=== PATIENT | male | born 1970 | race Caucasian/White ===

== ENCOUNTER 2016-10-10 17:51 | Emergency (ER) | payer SELFPAY ==
--- NOTE | 2016-10-10 19:43 | ED ---
I, Ned Desir, scribed for Anupama Bond MD on 10/10/16 at 1913 . Substance Abuse/Use - HPI Summary HPI Summary: A 46 y/o M FRANCESCA presents to ED with substance overdose HOT BRAIDER. Pt relapsed with IV opiate after not using for "a long time." Pt states he has been buying street suboxone. Pt states he tried to cut back and started going through withdrawal - last suboxone on 10/08. Pt states a friend sold him what he thought was heroin, but he is concerned it had Fentanyl. Pt states his friend assisted injection. Pt states that is the last thing he remembers until the ambulance. Per report, pt received CPR by cousin prior to EMS. Pt was given Narcan enroute. Upon arrival, pt without complaints other than pain over sternum and feeling "ashamed." Pt states has never gone through a detox program. Pt states he doesn't want to go "someplace" but states thinks need help and would consider prescribed suboxone. Pt does not have a PCP or insurance. Pt's so states she is considering adding him to her insurance, but states "I need guarantees he is going to stayy clean because I have children." Pt without other complaints -no n/v, hewitt, sob, abd pain. SHx: back surgery. Smoker, 1ppd. Occasional EhTOH. Patient's medication reviewed this visit. - History Of Current Complaint Chief Complaint: EDOverdose Stated Complaint: OVERDOSE Time Seen by Provider: 10/10/16 19:04 Hx Obtained From: Patient, Family/Senior Functional Analyst - girlfriend Onset/Duration of Drug/ETOH Abuse: Hours Ingestion History: Type/Name Of Drug - fentanyl Overdose Characteristics: IV Severity Initially: Severe Severity Currently: Mild Character: Other - tearful Aggravating Factor(s): Other - ilicit substance use Alleviating Factor(s): Nothing Associated Signs And Symptoms: Negative, Chest Pain - mild due to CPR - sternum - Allergies/Home Medications Allergies/Adverse Reactions: Allergies Allergy/AdvReac Type Severity Reaction Status Date / Time No Known Allergies Allergy Verified 06/30/13 21:34 PMH/Surg Hx/FS Hx/Imm Hx Previously Healthy: No Endocrine/Hematology History: Denies: Hx Diabetes, Hx Thyroid Disease Cardiovascular History: Denies: Hx Hypertension Respiratory History: Denies: Hx Asthma, Hx Chronic Obstructive Pulmonary Disease (COPD) GI History: Denies: Hx Ulcer Psychiatric History: Reports: Hx Substance Abuse - Surgical History Surgery Procedure, Year, and Place: back, lumbar Infectious Disease History: No Infectious Disease History: Denies: Hx Clostridium Difficile, Hx Hepatitis, Hx Human Immunodeficiency Virus (HIV), Hx of Known/Suspected MRSA, Hx Shingles, Hx Tuberculosis, Hx Known/ Suspected VRE, Hx Known/Suspected VRSA, History Other Infectious Disease, Traveled Outside the [place] in Last 30 Days - Social History Occupation: Unemployed - OTHER Lives: With Family Alcohol Use: Rare Hx Substance Use: Yes Substance Use Type: Reports: Other Substance Use Comment - Amount & Last Used: Suboxone (nonprescription x1 year), today, heroin IV Hx Tobacco Use: Yes Smoking Status (MU): Heavy Every Day Tobacco Smoker Type: Cigarettes Amount Used/How Often: 1 PPD Length of Time of Smoking/Using Tobacco: 15+ years Have You Smoked in the Last Year: Yes Review of Systems Constitutional: Other - pos: overdose Negative: Fever Eyes: Negative ENT: Negative Positive: Chest Pain - mild sternum Respiratory: Negative Negative: Shortness Of Breath Negative: Vomiting, Nausea Genitourinary: Negative Musculoskeletal: Negative Skin: Negative Neurological: Negative Psychological: Other - pos: teary All Other Systems Reviewed And Are Negative: Yes Physical Exam Triage Information Reviewed: Yes Vital Signs On Initial Exam: Initial Vitals Temp Pulse Resp BP Pulse Ox 98.7 F 94 17 179/73 98 10/10/16 18:07 10/10/16 18:07 10/10/16 18:07 10/10/16 18:07 10/10/16 18:07 Vital Signs Reviewed: Yes Appearance: Positive: Well-Appearing, No Pain Distress - intermittently tearful , SO at bedside, Well-Nourished Skin: Positive: Warm, Skin Color Reflects Adequate Perfusion, Dry, Other - No ecchymosis, no open wounds Head/Face: Positive: Normal Head/Face Inspection Eyes: Positive: Normal ENT: Positive: Normal ENT inspection, Hearing grossly normal, Pharynx normal, TMs normal Neck: Positive: Supple, Nontender, No Lymphadenopathy Respiratory/Lung Sounds: Positive: Clear to Auscultation, Breath Sounds Present , Other - no splinting No accessory muscle use. Negative: Decreased Breath Sounds Cardiovascular: Positive: Normal, RRR, Other - No crepitus Mild TTP sternum Abdomen Description: Positive: Nontender, No Organomegaly, Soft Bowel Sounds: Positive: Present Musculoskeletal: Positive: Normal, Strength/ROM Intact Neurological: Positive: Normal, Sensory/Motor Intact, Alert, Oriented to Person Place, Time Psychiatric: Positive: Affect/Mood Appropriate - intermittently tearful AVPU Assessment: Alert - [place] Coma Scale Best Eye Response: 4 - Spontaneous Best Motor Response: 6 - Obeys Commands Best Verbal Response: 5 - Oriented Coma Scale Total: 15 Diagnostics - Vital Signs Vital Signs Temp Pulse Resp BP Pulse Ox 10/10/16 18:20 88 14 98 10/10/16 18:07 98.7 F 94 17 179/73 98 - Laboratory Lab Statement: Any lab studies that have been ordered have been reviewed, and results considered in the medical decision making process. - Radiology CXR Xray Interpretation: No Acute Changes - IMPRESSION: No evidence for active cardiopulmonary dz. Radiology Interpretation Completed By: Radiologist - EKG 1 EKG Rhythm: Sinus Rhythm - 77bpm ST Segment: Normal - no acute ST wave changes Re-Evaluation - Re-Evaluation 1 Re-Evaluation Time: 20:04 Change: Improved Comment: Disccusing XR results with pt Pt states feeling better. Has substance abuse treatment information, SW consult requested for tomorrow, physician referral number given. Pt comfortable and in agreement with plan. tolerating po Course/Dx - Course Course Of Treatment: Provided pt with information of local substance abuse treatment centers, as well as [facility] physician referral services. - Diagnoses Provider Diagnoses: Opiate abuse, episodic, Chest wall pain Discharge - Discharge Plan Condition: Stable Disposition: HOME Patient Education Materials: Narcotic Abuse (ED), Adult Overdose (ED), Opioid Overdose (ED) Referrals: No Primary Care Phys,NOPCP [Primary Care Provider] - [facility] PHYSICIAN REFERRAL [Outside] Additional Instructions: - You have been given a list of resources to call for assistance with your opiate addiction - A referral has been placed for social work to contact your - they should call you to discuss options for insurance with you - You have also been given the physician referral center number - they may be able to assist you with options related to your addiction as well as primary medicine The documentation as recorded by the [facility] main SooYoung accurately reflects the service I personally performed and the decisions made by me, Varun,Anupama, MD.
--- NOTE | 2016-10-10 19:58 | RAD ---
INDICATION: Status post CPR evaluate for pneumothorax. COMPARISON: There are no prior studies available for comparison. TECHNIQUE: Dual-energy PA and lateral views of the chest were obtained. FINDINGS: The heart is within normal limits in size. Mediastinal and hilar contours appear within normal limits. The lungs are clear. No pleural effusion or pneumothorax is seen. IMPRESSION: NO EVIDENCE FOR ACTIVE CARDIOPULMONARY DISEASE.
[2016-10-10] MEDS ORDERED: Ondansetron ODT TAB* 4 MG PO PRN (20:22)
[2016-10-10 20:49] VITALS: BP 111/60
== END 2016-10-10 20:30 | disposition home or self-care (01) ==
LOC: ED 17:51
DX: F11.10 Opioid abuse, uncomplicated (principal); R07.89 Other chest pain; Z11.4 Encounter for screening for human immunodeficiency virus [HIV]; F17.210 Nicotine dependence, cigarettes, uncomplicated
CPT/HCPCS: 36415; 71020; 86703; 93005; 99282

== ENCOUNTER 2016-10-25 20:35 | Emergency (ER) | payer OTHER ==
[2016-10-25 20:45] VITALS: BP 139/87
[2016-10-25] MEDS ORDERED: Ibuprofen TAB* 600 MG PO ONE (21:15)
--- NOTE | 2016-10-25 22:05 | RAD ---
INDICATION: Chest pain in a man who underwent chest compressions October 10, 2016 COMPARISON: None TECHNIQUE: Axial source images of the chest were acquired without intravenous contrast from just above the lung apices to the base of the diaphragm. Coronal and sagittal reconstructed images were acquired. FINDINGS: The lungs exhibit mild centrilobular emphysematous changes. There are no focal infiltrates or effusions. There are no pulmonary parenchymal masses. The heart is normal in size. There is no evidence of pericardial effusion. There is no evidence of aortic aneurysm or dissection. There is no readily apparent mediastinal, hilar, or axillary lymphadenopathy. There is a nondisplaced rib fracture at the anterior left second rib (axial image 18 there is a nondisplaced fracture at the right second anterior rib (image 23). Nondisplaced fractures are seen at the anterior bilateral ribs more inferiorly up to the fifth ribs (for example axial image 35). Limited views of the upper abdomen show no acute abnormalities. IMPRESSION: Minimally displaced fractures bilaterally at the anterior 2nd through 5th ribs.
[2016-10-25] MEDS ORDERED: HYDROcodone/ACETAMIN 5-325 MG* 1 TAB PO ONE (22:13)
--- NOTE | 2016-10-25 22:16 | UC ---
[facility] Pereyra Benjamin, scribed for Robert Bernard MD on 10/25/16 at 2114 . Truncal Trauma HPI - HPI Summary HPI Summary: 46yo male presents to with sternal pain, mid-line upper back pain, and bilateral rib pain. Pt had drug overdose episode 15 days ago, which pt received CPR for. Pt states that he started getting his current pain after his CPR. Also reports limited ROM of the left arm, only able to lift up elbow to shoulder height. Pain worsens with sneezing. - History Of Current Complaint Chief Complaint: UCTrauma Stated Complaint: RIB PAIN Hx Obtained From: Patient Onset/Duration: Lasting Weeks - 2 weeks, Still Present Onset Of Pain: Post Accident Severity Initially: Mild Severity Currently: Mild Mechanism Of Injury: Blunt Trauma - force from CPR Aggravating Factor(s): Cough - sneezing Alleviating factor(s): Nothing Associated Signs And Symptoms: Positive: Negative - Allergies/Home Medications Allergies/Adverse Reactions: Allergies Allergy/AdvReac Type Severity Reaction Status Date / Time No Known Allergies Allergy Verified 10/25/16 20:45 Home Medications: Home Medications NK [No Home Medications Reported] 10/25/16 [History Confirmed 10/25/16] PMH/Surg Hx/FS Hx/Imm Hx Previously Healthy: No Psychological History: Other Other Psychological History: drug OD - Surgical History Surgical History: None Surgery Procedure, Year, and Place: back, lumbar - Family History Known Family History: Positive: Hypertension, Diabetes Negative: Cardiac Disease - Social History Occupation: Employed Full-time Lives: With Family Alcohol Use: Rare Substance Use Type: None Substance Use Comment - Amount & Last Used: HX HEROIN USE Smoking Status (MU): Current Every Day Smoker Type: Cigarettes Amount Used/How Often: 1 PPD Length of Time of Smoking/Using Tobacco: 15+ years Have You Smoked in the Last Year: Yes Review of Systems Constitutional: Negative Skin: Negative Eyes: Negative ENT: Negative Respiratory: Negative Cardiovascular: Negative Gastrointestinal: Negative Genitourinary: Negative Motor: Negative Neurovascular: Negative Musculoskeletal: Other: - mid sternal pain, rib pain, back pain Neurological: Negative Psychological: Negative All Other Systems Reviewed And Are Negative: Yes Physical Exam Triage Information Reviewed: Yes Vital Signs: Initial Vital Signs Temp 98.5 F 10/25/16 20:39 Pulse 89 10/25/16 20:39 Resp 18 10/25/16 20:39 BP 139/87 10/25/16 20:39 Pulse Ox 98 10/25/16 20:39 Vital Signs Reviewed: Yes Eyes: Positive: Conjunctiva Clear ENT: Positive: Normal ENT inspection Neck: Positive: Supple, Nontender Respiratory: Positive: Chest non-tender, Lungs clear, Normal breath sounds Cardiovascular: Positive: RRR, No Murmur Abdomen Description: Positive: Nontender, Soft Bowel Sounds: Positive: Present Musculoskeletal: Positive: Strength Intact, ROM Intact, Other: - Tenderness at Right upper paraspinous back, tenderness at left posterior ribs. Tenderness at sternum. Neurological: Positive: Alert, Muscle Tone Normal Psychological: Positive: Age Appropriate Behavior Skin: Negative: rashes Diagnostics - Radiology CT Chest W/O Xray Interpretation: Positive (See Comments) - IMPRESSION: Minimally displaced fractures bilaterally at the anterior 2nd through 5th ribs. Radiology Interpretation Completed By: Radiologist Truncal Trauma Course/Dx - Course Course Of Treatment: MEDICATIONS REVIEWED. RX VICODEN, HOME WITH INCENTIVE SPIROMETER. - Differential Dx/Diagnosis Provider Diagnoses: RIB FRACTURES 2-5 Discharge - Discharge Plan Condition: Stable Disposition: HOME Patient Education Materials: Rib Fracture (ED) Referrals: No Primary Care Phys,NOPCP [Primary Care Provider] - Additional Instructions: FOLLOW UP WITH YOUR DOCTOR. USE THE INCENTIVE SPIROMETER EVERY 4 HOURS WHILE AWAKE TO HELP AVOID RESPIRATORY INFECTION. GO TO THE EMERGENCY DEPARTMENT FOR ANY WORSENING OF YOUR CONDITION; PAIN, SHORTNESS OF BREATH, YOU FEEL ILL, FEVER OR QUESTIONS OR CONCERNS. The documentation as recorded by the [facility] main Benjamin accurately reflects the service I personally performed and the decisions made by me, Robert Bernard MD.
== END 2016-10-25 22:30 | disposition home or self-care (01) ==
LOC: UCEAST 20:35
DX: S22.43XA Multiple fractures of ribs, bilateral, initial encounter for closed fracture (principal); X58.XXXA Exposure to other specified factors, initial encounter; Z87.898 Personal history of other specified conditions
CPT/HCPCS: 71250; 99212; A9270-GY; G0463